=== PATIENT | female | born 1975 | race Hispanic/Latino ===

== ENCOUNTER 2024-12-27 11:04 | Inpatient (IN) | payer BC ==
[~2024-12-27] VITALS: Ht 154.9 cm; Wt 109.8 kg
[2024-12-27 11:40] LABS: NUCLEATED RED BLOOD CELLS 0.0 % (0.0-0.19); PLATELET COUNT (AUTO) 215 K/uL (130-400); RED BLOOD CELL COUNT(AUTO) 5.08 MIL/uL (4.00-5.50); RED CELL DISTRIBUTION WIDTH 14.7 % (11.0-15.5); WHITE BLOOD COUNT (AUTO) 7.9 K/uL (4.8-10.8)
[2024-12-27 11:49] LABS: CREATININE 0.7 mg/dL (0.5-1.0); GLOMERULAR FILTR. RATE CALC 106.0 mL/min (>90); GLUCOSE,RANDOM 104.0 mg/dL (70-105); SODIUM SERUM 140.0 mmol/L (136-145); UREA NITROGEN, BLOOD 12.0 mg/dL (7-18)
[2024-12-27 11:54] LABS: ASPARTATE AMINOTRANSFERASE 15.0 U/L (10-37); TOTAL PROTEIN, SERUM 7.8 g/dL (6.0-8.3)
[2024-12-27] MEDS ORDERED: IOHEXOL-350 75 ML VIAL IV ONE (12:40)
[2024-12-27 12:47] LABS: BAND NEUTROPHILS % (MANUAL) 3 % (0-2); BASOPHILS % (MANUAL) 1 % (0-2); LYMPHOCYTES % (MANUAL) 31 % (22-44); MAN.DIFF COMMENT-IMPRESSION MANUAL DIFFERENTIAL; MONOCYTES % (MANUAL) 3 % (2-9); PLATELET MORPHOLOGY COMMENT ADEQUATE; SEGMENTED NEUTROPHILS % 62 % (40-70); WBC MORPHOLOGY CONSISTENT W/DIFF
--- NOTE | 2024-12-27 13:32 | HMCIMG ---
INDICATION: R/O PAIN,DIVERTICULITIS. COMPARISON: None. TECHNIQUE: After obtaining the patient's consent, CT images were created with oral contrast and and with non-ionic intravenous contrast material. Numerous low-radiation dose strategies were employed including AEC (Automatic Exposure Control) and individualized BMI-based low dose scan protocols. The exam was performed on a CT scanner that is compliant with the NEMA XR-29 Smart Dose Standard. DICOM Radiation Dose Structured Reporting capability and Dose Check Standard are also features of this scanner. RADIATION DOSE ESTIMATE: CTDIvol (mGy): 70.20 \ DLP (mGy-cm): 3462.40 FINDINGS: LOWER THORAX:Lung bases are clear. Normal cardiac size without pericardial effusion. LIVER: No focal hepatic abnormality. BILIARY: The gallbladder is surgically absent. No intra or extrahepatic biliary ductal dilatation. PANCREAS: Normal. No lesion, fluid collection, ductal dilatation, or acute inflammation. SPLEEN: Normal. No enlargement or focal lesion. STOMACH/DUODENUM: Unremarkable. ADRENALS: Normal. No mass or enlargement. KIDNEYS: Normal. No mass, obstruction, or nephrolithiasis. BOWEL/MESENTERY: There are scattered diverticulosis. In the mid descending colon there is a nonperforated diverticulitis with pericolonic fat stranding. AORTA/VASCULAR: No aneurysm. atherosclerotic disease. PERITONEUM/RETROPERITONEUM: Normal. No mass, ascites or free air. LYMPH NODES: No pathologically enlarged lymph nodes. URINARY BLADDER: Normal. No visible focal wall thickening, lesion, or calculus. PELVIC ORGANS: The uterus is an IUD in place. There is a right adnexal cyst measuring 4.4 x 3.7 cm. BONES: No acute osseous abnormality. ABDOMINAL WALL/SOFT TISSUES: Normal. No mass or hernia. IMPRESSION: There is early nonperforated diverticulitis seen in the mid descending colon.
[2024-12-27] MEDS ORDERED: guaiFENesin-DM 200/20MG 10ML PO PRN (16:00)
[2024-12-27] MEDS: ZOSYN 3.375GM +NS 50ML IV SCH (16:43)
--- NOTE | 2024-12-27 17:54 | NUR ---
REPORT CALLED TO MIRZA SRIVASTAVA AT THIS TIME.
--- NOTE | 2024-12-27 18:06 | NUR ---
PT C/O ITCHY EARS AND AN ITCHY THROAT AFTER RECIEVING ZOSYN. CALLED DR SOLIS TO NOTIFY OF REACTION. PER DR SOLIS, GIVE 25 OF BENADRYL IV. NO FURTHER ORDERS AT THIS TIME.
[2024-12-27 19:45] VITALS: BP 148/71; PULSE 82; RESP 20; TEMP 99.1
[2024-12-27] MEDS: 1/2 NS 1000ML 1,000 ML IV SCH (20:05)
[2024-12-27] MEDS ORDERED: CHOL1CAP11 PO (23:36)
[2024-12-27] MEDS ORDERED: LOSA100T59 PO (23:36)
[2024-12-27] MEDS ORDERED: AMLO-257 PO (23:36)
[2024-12-27] MEDS ORDERED: KRIL1CAP44 PO (23:36)
[2024-12-27] MEDS ORDERED: DICL50TA9 PO (23:36)
[2024-12-28] VITALS (7 sets, daily range): BP systolic 117–156; BP diastolic 63–78; PULSE 62–94; RESP 18–20; TEMP 97.7–99.5; O2SAT 98
[2024-12-28 04:49] LABS: NUCLEATED RED BLOOD CELLS 0.0 % (0.0-0.19); PLATELET COUNT (AUTO) 197.0 K/uL (130-400); RED BLOOD CELL COUNT(AUTO) 4.6 MIL/uL (4.00-5.50); RED CELL DISTRIBUTION WIDTH 14.8 % (11.0-15.5); WHITE BLOOD COUNT (AUTO) 7.9 K/uL (4.8-10.8)
[2024-12-28 05:04] LABS: CREATININE 0.9 mg/dL (0.5-1.0); GLOMERULAR FILTR. RATE CALC 78.0 mL/min (>90); GLUCOSE,RANDOM 91.0 mg/dL (70-105); SODIUM SERUM 138.0 mmol/L (136-145); UREA NITROGEN, BLOOD 15.0 mg/dL (7-18)
[2024-12-28] MEDS ORDERED: PoTASSium chl 10% ELIXIR 20MEQ 20 MEQ/15 ML UDCUP PO PRN (07:00)
--- NOTE | 2024-12-28 09:08 | HP ---
HISTORY OF PRESENT ILLNESS: Direct admission from my office. The patient came complaining of left upper quadrant and left lower quadrant pain for the last few days with no associated fever or chills. No nausea, vomiting. No hematemesis or melena. Pain consistent with previous episodes of diverticulitis. ALLERGIES: None. MEDICATIONS: The patient's medications include amlodipine, losartan, Mounjaro and baclofen. PAST MEDICAL HISTORY: Type 2 diabetes, hypertension, and chronic kidney disease. REVIEW OF SYSTEMS: Having no fever, chills, seizures. No cough, wheezes or rhonchi. No chest pain, palpitations, or dizziness. No nausea, vomiting, or diarrhea. No dysuria, urgency, or frequency. No rashes, petechiae, or ecchymosis. No hallucinations, delusions. No suicidal ideations. PHYSICAL EXAMINATION: GENERAL: She is awake, alert, and oriented in person, time, and place. VITAL SIGNS: Blood pressure 136/70. Pulse 72. Respiratory rate is 16. HEENT: He is normocephalic, atraumatic. LUNGS: Clear to auscultation. HEART: S1, S2 are distant. ABDOMEN: Soft, tender to deep palpation left upper quadrant and left lower quadrant without any masses. No rebound. EXTREMITIES: No clubbing or cyanosis. No edema. LABORATORY DATA: Sodium 140, potassium 4.1, creatinine 0.7, BUN 12, WBC count 7.9, hemoglobin 14.5, and platelets 215. CT scan of the abdomen and pelvis shows scattered diverticulosis. In the mid descending colon, there is nonperforated diverticulitis with pericolonic fat stranding. Impression was early nonperforated diverticulitis in the mid descending colon. ASSESSMENT AND PLAN: * Abdominal pain consistent with diverticulitis. Continue Zosyn and Flagyl. * GI consultation will be made. * Continue treatment of other comorbidities. * Plan to discharge when cleared by GI. DOS: 12/27/2024 TID: [id number] RECEIPT: [id number] [facility] NETWORKCristy
--- NOTE | 2024-12-28 11:00 | NUR ---
ZOSYN ADMINISTRATION Started running zosyn at 1000. Remained at bedside for the first hour to monitor for any adverse reaction, with diphenhydramine on hand. No adverse reaction to medication within the first hour of administration. Patient is tolerating well.
--- NOTE | 2024-12-28 17:00 | NUR ---
INITIAL/DCP HOME Met w pt this afternoon to discuss dcp. Pt mentions that she lives w her spouse and children. She uses a Rt knee brace and is independent w ambulation/ADLs. She is able to drive herself where needed. Her preferred pharmacy [facility]. Pt mentions that she also has a nebulizer avail at home. Per pt she feels safe and comfortable to return home at discharge. Addendum: 12/29/24 at 0946 by RENATA CARDENAS CM Amended: Links added.
[2024-12-28] MEDS: amLODIPine 5 MG TAB PO SCH (17:05)
--- NOTE | 2024-12-28 23:04 | PN ---
PROGRESS NOTE PROGRESS NOTE DATE OF PROGRESS NOTE: 12/28/24 SUBJECTIVE: No new complaints VITAL SIGNS Vital Signs Date Time Temp Pulse Resp B/P (MAP) Pulse Ox O2 Delivery O2 Flow Rate FiO2 12/28/24 20:40 98.1 66 20 137/66 98 Room Air 12/28/24 20:16 0 21 PHYSICAL EXAM: HEENT: He is normocephalic, atraumatic. LUNGS: Clear to auscultation. HEART: S1, S2 are distant. ABDOMEN: Soft, tender to deep palpation left upper quadrant and left lower quadrant without any masses. No rebound. EXTREMITIES: No clubbing or cyanosis. No edema. LABORATORY: Laboratory Result(s) Test 12/28/24 04:39 White Blood Count 7.9 K/uL (4.8-10.8) Red Blood Count 4.60 MIL/uL (4.00-5.50) Hemoglobin 13.2 g/dL (12.0-16.0) Hematocrit 40.2 % (36-48) Mean Corpuscular Volume 87.4 fL (79-99) Mean Corpuscular Hemoglobin 28.7 pg (27.0-33.0) Mean Corpuscular Hemoglobin Concent 32.8 g/dL (32.0-36.0) Red Cell Distribution Width 14.8 % (11.0-15.5) Platelet Count 197 K/uL (130-400) Mean Platelet Volume 11.4 fL (7.5-10.5) Nucleated Red Blood Cells 0.0 % (0.0-0.19) Sodium Level 138 mmol/L (136-145) Potassium Level 3.6 mmol/L (3.5-5.1) Chloride Level 103 mmol/L (101-111) Carbon Dioxide Level 25 mmol/L (21-32) Blood Urea Nitrogen 15 mg/dL (7-18) Creatinine 0.9 mg/dL (0.5-1.0) Glomerular Filtration Rate Calc 78 mL/min (>90) Random Glucose 91 mg/dL (70-105) Total Calcium 8.4 mg/dL (8.5-10.1) INPATIENT MEDS: Current Medications Medications Dose Ordered Sig/Sid Start Time Stop Time Status Last Admin Diphenhydramine HCl 25 mg Q4H PRN 12/27/24 16:00 01/26/25 15:59 Acetaminophen 650 mg TID PRN 12/27/24 16:00 01/26/25 15:59 Zolpidem Tartrate 5 mg HS PRN 12/27/24 16:00 01/26/25 15:59 Guaifenesin/ Dextromethorphan 10 ml Q4H PRN 12/27/24 16:00 01/26/25 15:59 Piperacillin Sod/ Tazobactam Sod 3.375 gm Q8H 12/27/24 16:00 01/06/25 15:59 12/28/24 17:05 Morphine Sulfate 4 mg Q6H PRN 12/27/24 16:00 01/03/25 15:59 Ondansetron HCl 4 mg Q6H PRN 12/27/24 18:00 01/26/25 17:59 Sodium Chloride 1,000 ml @ 75 mls/hr [id number] 12/27/24 18:00 01/26/25 17:59 12/28/24 10:13 Potassium Chloride 100 ml @ 100 mls/hr AD PRN 12/28/24 07:00 01/27/25 06:59 Potassium Chloride 20 meq AD PRN 12/28/24 07:00 01/27/25 06:59 Potassium Chloride 20 meq AD PRN 12/28/24 07:00 01/27/25 06:59 Amlodipine Besylate 5 mg DAILYDINNER 12/28/24 17:00 01/27/25 16:59 12/28/24 17:05 Losartan Potassium 100 mg DAILYDINNER 12/28/24 17:00 01/27/25 16:59 12/28/24 17:05 Home Med [email or web address] 12/29/24 08:00 01/28/25 07:59 Home Med DAILY 12/29/24 09:00 01/28/25 08:59 Acetaminophen/ Codeine Phosphate 1 tab Q4H PRN 12/28/24 19:30 01/27/25 19:29 PLAN: ASSESSMENT AND PLAN: * Abdominal pain consistent with diverticulitis. Continue Zosyn and Flagyl. * GI consultation will be made. * Continue treatment of other comorbidities. * Plan to discharge when cleared by GI. SUNNY SOLIS MD Dec 28, 2024 23:04
[2024-12-29] VITALS (8 sets, daily range): BP systolic 123–168; BP diastolic 59–90; PULSE 60–92; RESP 18–20; TEMP 98–98.6; O2SAT 99
[2024-12-29] MEDS: [UNRECOGNIZED DRUG - OTHER] PO SCH (08:00)
[2024-12-29] MEDS: VIT K2 PO SCH (08:00)
[2024-12-29] MEDS: CHOLECALCIFEROL PO SCH (08:00)
[2024-12-29] MEDS: PHOSPHO PO SCH (08:57)
[2024-12-29] MEDS: DHA PO SCH (08:57)
[2024-12-29] MEDS: [UNRECOGNIZED DRUG - OTHER] PO SCH (08:57)
[2024-12-29] MEDS: KRILL PO SCH (08:57)
[2024-12-29] MEDS: EPA PO SCH (08:57)
[2024-12-29] MEDS: AST PO SCH (08:57)
--- NOTE | 2024-12-29 13:06 | PN ---
PROGRESS NOTE PROGRESS NOTE DATE OF PROGRESS NOTE: 12/29/24 SUBJECTIVE: Improved abdominal pain with no fever VITAL SIGNS Vital Signs Date Time Temp Pulse Resp B/P (MAP) Pulse Ox O2 Delivery O2 Flow Rate FiO2 12/29/24 12:43 98.2 60 19 124/60 97 Room Air 12/28/24 20:16 0 21 PHYSICAL EXAM: HEENT: He is normocephalic, atraumatic. LUNGS: Clear to auscultation. HEART: S1, S2 are distant. ABDOMEN: Soft, tender to deep palpation left upper quadrant and left lower quadrant without any masses. No rebound. EXTREMITIES: No clubbing or cyanosis. No edema. INPATIENT MEDS: Current Medications Medications Dose Ordered Sig/Sid Start Time Stop Time Status Last Admin Diphenhydramine HCl 25 mg Q4H PRN 12/27/24 16:00 01/26/25 15:59 Acetaminophen 650 mg TID PRN 12/27/24 16:00 01/26/25 15:59 Zolpidem Tartrate 5 mg HS PRN 12/27/24 16:00 01/26/25 15:59 Guaifenesin/ Dextromethorphan 10 ml Q4H PRN 12/27/24 16:00 01/26/25 15:59 Piperacillin Sod/ Tazobactam Sod 3.375 gm Q8H 12/27/24 16:00 01/06/25 15:59 12/29/24 09:00 Morphine Sulfate 4 mg Q6H PRN 12/27/24 16:00 01/03/25 15:59 Ondansetron HCl 4 mg Q6H PRN 12/27/24 18:00 01/26/25 17:59 Potassium Chloride 100 ml @ 100 mls/hr AD PRN 12/28/24 07:00 01/27/25 06:59 Potassium Chloride 20 meq AD PRN 12/28/24 07:00 01/27/25 06:59 Potassium Chloride 20 meq AD PRN 12/28/24 07:00 01/27/25 06:59 Amlodipine Besylate 5 mg DAILYDINNER 12/28/24 17:00 01/27/25 16:59 12/28/24 17:05 Losartan Potassium 100 mg DAILYDINNER 12/28/24 17:00 01/27/25 16:59 12/28/24 17:05 Home Med [email or web address] 12/29/24 08:00 01/28/25 07:59 Home Med DAILY 12/29/24 09:00 01/28/25 08:59 Acetaminophen/ Codeine Phosphate 1 tab Q4H PRN 12/28/24 19:30 01/27/25 19:29 Hydralazine HCl 25 mg TID PRN 12/29/24 08:00 01/28/25 07:59 PLAN: ASSESSMENT AND PLAN: * Abdominal pain consistent with diverticulitis. Continue Zosyn and Flagyl. * GI consultation will be made. * Continue treatment of other comorbidities. * Plan to discharge when cleared by GI. SUNNY SOLIS MD Dec 29, 2024 13:06
[2024-12-30 00:11] VITALS: BP 135/71; PULSE 69; RESP 19; TEMP 98
[2024-12-30 04:13] VITALS: BP 140/72; PULSE 68; RESP 18; TEMP 97.9
[2024-12-30 06:00] LABS: IMMATURE GRANULOCYTE ABSOLUTE 0.03 K/uL (0-1); NUCLEATED RED BLOOD CELLS 0.0 % (0.0-0.19); PLATELET COUNT (AUTO) 225 K/uL (130-400); RED BLOOD CELL COUNT(AUTO) 4.75 MIL/uL (4.00-5.50); RED CELL DISTRIBUTION WIDTH 14.3 % (11.0-15.5); WHITE BLOOD COUNT (AUTO) 7.8 K/uL (4.8-10.8)
[2024-12-30 06:09] LABS: CREATININE 0.7 mg/dL (0.5-1.0); GLOMERULAR FILTR. RATE CALC 106.0 mL/min (>90); GLUCOSE,RANDOM 80.0 mg/dL (70-105); SODIUM SERUM 138.0 mmol/L (136-145); UREA NITROGEN, BLOOD 10.0 mg/dL (7-18)
[2024-12-30] MEDS: PoTASSium chloRIDE 20MEQ ER 20 MEQ ERTAB PO PRN (06:23)
[2024-12-30 08:00] VITALS: BP 138/73; PULSE 62; RESP 19; TEMP 97.8
[2024-12-30 08:22] VITALS: O2SAT 98
--- NOTE | 2024-12-30 10:43 | NUR ---
DISCHARGE PERIPHERAL IV REMOVED DISCHARGE EDUCATION AND INSTRUCTIONS PROVIDED TO PATIENT AND FAMILY PATIENT AND FAMILY AWARE TO FOLLOW UP WITH PCP IN 3-5 DAYS. PATIENT AND FAMILY AWARE TO FOLLOW UP WITH DR. FINNEGAN IN 1-2 WEEKS PATIENT AND FAMILY AWARE THAT DR. BERGERON'S OFFICE WILL SEND ANTIBIOTIC TO PREFERRED PHARMACY ALL QUESTIONS ANSWERED.
== END 2024-12-30 10:50 | disposition home or self-care (01) | DRG 392 ==
LOC: EDH 11:04 → DIRECT 11:05 → OBSVTOIN 11:05 → 3CH 20:14
PROVIDERS: ADMIT Internal Medicine; ATTEND Internal Medicine
DX: K57.32 Diverticulitis of large intestine without perforation or abscess without bleeding (principal); I12.9 Hypertensive chronic kidney disease with stage 1 through stage 4 chronic kidney disease, or unspecified chronic kidney disease; N18.9 Chronic kidney disease, unspecified; E11.22 Type 2 diabetes mellitus with diabetic chronic kidney disease
CPT/HCPCS: 36415; 74178; 80048; 80053; 80076; 85025; 85027; G0378; J1200; J2270; J2405; J2543; Q0163; Q9967